=== PATIENT | female | born 1980 | race Caucasian/White ===

== ENCOUNTER 2022-06-29 14:49 | Emergency (ER) | payer OTHER, SELFPAY ==
--- NOTE | ~2022-06-29 | XR_ITS ---
EXAM: XR ankle RT min 3V DATE: 06/29/2022 15:08 HISTORY: INVERSION INJURY, LAT MALLEOLUS SWELLING . COMPARISON: None available. FINDINGS: Normal mineralization. No fracture or dislocation. No lytic or blastic lesion. Joint space s are maintained. Achilles and plantar enthesopathy. No erosion or periosteal change. Soft tissues wi thin normal limits. IMPRESSION: No acute osseous finding in the right ankle. Reviewed, dictated and finalized at location [facility] [facility] [employer]
--- NOTE | 2022-06-29 14:53 | ED.LOWEXIN ---
HPI - Extremity Injury (Lower) General Chief Complaint: Extremity Injury, Lower Stated Complaint: right ankle injury Time Seen by Provider: 06/29/22 14:54 Source: patient and RN notes reviewed History of Present Illness HPI Narrative: patient is a 41-year-old female who presents to urgent care with complaints of right ankle pain after she rolled it last night. Patient has been wearing a brace that she obtained [id number]. Patient has been keeping it elevated with ice and ibuprofen. No other acute complaints or injuries. No acute distress noted. Some parts of this dictation were generated by voice recognition software and may contain typographical and/or grammatical inaccuracies. Related Data Home Medications Medication Instructions Recorded Confirmed atorvastatin 40 mg tablet 40 mg PO DIRECTED 06/29/22 06/29/22 venlafaxine 37.5 mg 37.5 mg PO DAILY 06/29/22 06/29/22 capsule,extended release 24 hr Allergies Allergy/AdvReac Type Severity Reaction Status Date / Time acetaminophen AdvReac Unknown Nausea and Verified 06/29/22 15:04 Vomiting codeine AdvReac Unknown Nausea and Verified 06/29/22 15:04 Vomiting hydrocodone AdvReac Unknown Nausea and Verified 06/29/22 15:04 Vomiting Review of Systems Review of Systems: CONSTITUTIONAL: Denies fever, chills, or sweats. EYES: Denies visual changes, redness, or discharge. ENT: Denies rhinorrhea, congestion, sore throat, or otalgia. CARDIOVASCULAR: Denies chest pain, palpitations, or edema. RESPIRATORY: Denies cough or dyspnea. GASTROINTESTINAL: Denies abdominal pain, nausea, vomiting, or diarrhea. GENITOURINARY: Denies dysuria or hematuria. SKIN: Denies rash or itching. MUSCULOSKELETAL: Reports of right ankle pain swelling NEUROLOGIC: Denies headache, numbness, or weakness. All other systems reviewed are negative, except as documented in HPI. [facility] Family History Family History Father Lung cancer Colon cancer Hypertension Mother Cervical cancer Social History Social History Smoking status: Never smoker Alcohol intake: never Substance use: never Comments At the time of my signature, I reviewed and agree with the nursing past medical, surgical, social, and family history. There is no relevant family history pertinent to the patient complaint. Exam Narrative: GENERAL: This is a well-nourished, well-developed patient, in no apparent distress. HEAD: normocephalic, atraumatic. EYES: PERRL. Sclera clear/white. Vision is grossly intact. EARS: External ears normal NOSE: External nose normal with no obvious nasal discharge, nares without redness, no rhinorrhea. THROAT: Mucous membranes moist NECK: Neck supple SKIN: warm, intact with no suspicious lesions or rash, good texture and turgor. NEURO: awake, alert, and oriented to person, place and time. There were no obvious focal neurologic abnormalities. EXTREMITIES: [id number] edema without erythema or ecchymosis noted to the lateral right malleolus with mild tenderness. Range of motion limited due to pain. Weightbearing limited due to pain. No obvious deformity noted. Course Course Level of Care: Express Care Visit Vital Signs Vital signs: Vital Signs Temperature 98.4 F 06/29/22 14:56 Pulse Rate 90 06/29/22 14:56 Respiratory Rate 16 06/29/22 14:56 Blood Pressure 111/85 06/29/22 14:56 Pulse Oximetry 100 06/29/22 14:56 Oxygen Delivery Room Air 06/29/22 14:56 Temperature 98.4 F 06/29/22 14:56 Pulse Rate 90 06/29/22 14:56 Respiratory Rate 16 06/29/22 14:56 Blood Pressure 111/85 06/29/22 14:56 Pulse Oximetry 100 06/29/22 14:56 Oxygen Delivery Room Air 06/29/22 14:56 reviewed MDM - Extremity Injury (Lower) MDM Narrative Medical decision making narrative: reviewed x-ray results with patient. She is aware t
[2022-06-29 14:56] VITALS: BP 111/85; PULSE 90; RESP 16; TEMP 36.9; O2SAT 100
== END 2022-06-29 15:32 | disposition home or self-care (01) ==
PROVIDERS: Emergency Provider Nurse Practitioner Family
DX: S93.401A Sprain of unspecified ligament of right ankle, initial encounter (principal); S96.911A Strain of unspecified muscle and tendon at ankle and foot level, right foot, initial encounter; X50.9XXA Other and unspecified overexertion or strenuous movements or postures, initial encounter; E78.00 Pure hypercholesterolemia, unspecified; F32.A Depression, unspecified
CPT/HCPCS: 73610; 99213; G0463